=== PATIENT | male | born 1940 | race Caucasian/White ===

== ENCOUNTER → 2018-07-13 | Outpatient (CLI) | payer MEDICARE ==
--- NOTE | 2018-07-13 13:44 | KCIC ---
EXAM: Cervical spine, 3 views; thoracic spine, 3 views. HISTORY: Pain. COMPARISON: None. FINDINGS: Cervical spine: 3 views of the cervical spine are obtained. There is no significant listhesis. There is mild endplate remodeling at multiple levels. There is multilevel facet arthropathy. The prevertebral soft tissues are unremarkable. No fracture is seen. Thoracic spine: 3 views of the thoracic spine are obtained. There is increased thoracic kyphosis. There is no significant thoracic listhesis. The thoracic vertebral kaufman are normal in height. There is endplate remodeling with bridging anterior osteophytosis throughout the majority of the thoracic spine. There is a calcified granuloma or prominent anterior second rib and overlying the right upper lobe. IMPRESSION: 1. Multilevel degenerative change throughout the cervical and thoracic spine, described above. 2. No acute osseous finding. Electronically signed by: Danica Parada MD (07/13/2018 1:41 PM) [id number]
== END | disposition home or self-care (01) ==
LOC: KCIC 12:56
PROVIDERS: ATTEND Nurse Practitioner Family
DX: M47.894 Other spondylosis, thoracic region (principal); M47.892 Other spondylosis, cervical region; M40.294 Other kyphosis, thoracic region; M12.88 Other specific arthropathies, not elsewhere classified, other specified site
CPT/HCPCS: 72040; 72072

== ENCOUNTER → 2018-08-28 | Outpatient (CLI) | payer MEDICARE ==
--- NOTE | 2018-08-28 12:51 | KCIC ---
Examination: CT chest without contrast HISTORY: History of pulmonary nodule follow-up COMPARISON: None available Technique: Axial CT images of the chest were performed without contrast. Coronal and sagittal reformats are performed. Exposure: One or more of the following individualized dose reduction techniques were utilized for this examination: 1. Automated exposure control 2. Adjustment of the mA and/or kV according to patient size 3. Use of iterative reconstruction technique. FINDINGS: The visualized thyroid gland grossly appears unremarkable. Central airways are patent. Heart size grossly appears unremarkable. The ascending aorta measures 3.7 cm in transverse dimension. Small hiatal hernia. There is a calcified granuloma measuring 1.5 cm in the right upper lobe of the lung. Minimal bibasilar lung atelectasis. There is mild decreased attenuation noted in the liver likely hepatic steatosis. The visualized spleen, adrenals grossly appears unremarkable. Moderate aortic atherosclerosis. Moderate degenerative changes thoracic spine. Impression: 1. 1.5 cm calcified nodule or granuloma identified in the right upper lobe of the lung, benign. 2. Small hiatal hernia. 3. Hepatic steatosis. 4. Coronary artery calcifications. 5. Focal ectasia ascending aorta. Electronically signed by: Edwin Wright MD (08/28/2018 12:48 PM) [place] [id number]
== END | disposition home or self-care (01) ==
LOC: KCIC CT 11:11
PROVIDERS: ATTEND Nurse Practitioner Family
DX: K44.9 Diaphragmatic hernia without obstruction or gangrene (principal); J98.11 Atelectasis; K76.0 Fatty (change of) liver, not elsewhere classified; I25.10 Atherosclerotic heart disease of native coronary artery without angina pectoris; I70.0 Atherosclerosis of aorta; I77.810 Thoracic aortic ectasia; J84.10 Pulmonary fibrosis, unspecified; M47.814 Spondylosis without myelopathy or radiculopathy, thoracic region; J45.909 Unspecified asthma, uncomplicated; Z87.891 Personal history of nicotine dependence
CPT/HCPCS: 71250

== ENCOUNTER → 2021-01-01 | Outpatient (CLI) | payer MEDICARE ==
--- NOTE | 2021-01-01 11:45 | KCIC ---
EXAM: Cervical spine, 4 views. HISTORY: Pain. COMPARISON: 07/13/2018 FINDINGS: 4 views of the cervical spine are obtained. There is no significant listhesis. There is mul tilevel endplate remodeling and anterior predominant spurring. There is multilevel facet arthropathy. There is no acute fracture. IMPRESSION: Multilevel advanced degenerative change involving the cervical spine, described above. No acute osseous finding. Electronically signed by: Danica Parada MD (01/01/2021 11:43 AM) [id number]
== END ==
LOC: KCIC 10:34
PROVIDERS: ATTEND Nurse Practitioner Family
DX: M47.812 Spondylosis without myelopathy or radiculopathy, cervical region (principal); M48.8X2 Other specified spondylopathies, cervical region; M46.02 Spinal enthesopathy, cervical region; M54.2 Cervicalgia
CPT/HCPCS: 72040

== ENCOUNTER → 2021-02-04 | Outpatient (CLI) | payer MEDICARE ==
--- NOTE | 2021-02-04 11:33 | KCIC ---
MRI of the cervical spine without contrast 02/04/2021 CLINICAL HISTORY: Chronic neck pain and stiffness. TECHNIQUE: Unenhanced T1-weighted, T2-weighted and inversion recovery sagittal and gradient echo and T2-weighted axial images of the cervical spine were obtained. FINDINGS: Comparison is made to radiographs of the cervical spine dated 01/01/2021. Very mild lateral curvature of the cervical spine is seen convex to the right. There is straightening of the normal cervical lordosis. Degenerative signal changes are seen involving all of the disks of the cervical spine. Degenerative signal changes are seen within the marrow surrounding these discs. D egenerative signal changes are seen within the marrow surrounding the C4-5 and C5-6 facet joints. No area of abnormal signal intensity is seen involving the cervical spinal cord. Increased signal intens ity is seen on theT2-weighted and inversion recovery images within the paraspinal musculature of the lower cervical spine which may reflect a recent muscle strain. At the C2-3 and C3-4 disc spaces there are minimal to mild generalized disc bulges. Degenerative ko ges are seen involving the uncovertebral and facet joints bilaterally. These findings do not result i n significant central spinal canal or neural foraminal stenosis. At the C4-5 disc space there is a minimal generalized disc bulge. Degenerative changes are seen invol ving the uncovertebral and facet joints, left greater than right. These findings do not result in sig nificant central spinal canal or neural foraminal stenosis. At the C5-6 disc space there is a mild generalized disc bulge. Degenerative changes are seen involvin g the uncovertebral and facet joints bilaterally. These findings do not result in significant central spinal canal or neural foraminal stenosis. At the C6-7 disc space there is a minimal generalized disc bulge. Degenerative changes are seen invol ving the uncovertebral and facet joints bilaterally. These findings do not result in significant cent ral spinal canal or neural foraminal stenosis. At the C7-T1 disc space there is a minimal generalized disc bulge. Degenerative changes are seen invo lving the uncovertebral and facet joints bilaterally. These findings when combined do not result in s ignificant central spinal canal or neural foraminal stenosis. IMPRESSION: 1. Degenerative changes are seen involving the cervical spine as discussed above. These findings do n ot result in significant central spinal canal or neural foraminal stenosis. 2. Increased signal intensity is seen within the paraspinal musculature on theT2-weighted and inversi on recovery images involving the lower cervical spine which may reflect a recent muscle strain. Electronically signed by: Kenneth Garcia MD (02/04/2021 11:30 AM) [id number]
== END ==
LOC: KCIC MRI 09:47
PROVIDERS: ATTEND Nurse Practitioner Family
DX: M47.813 Spondylosis without myelopathy or radiculopathy, cervicothoracic region (principal); M50.23 Other cervical disc displacement, cervicothoracic region
CPT/HCPCS: 72141